=== PATIENT | male | born 1960 | race Caucasian/White ===

== ENCOUNTER 2016-12-16 07:00 | Day surgery (SDC) | payer OTHER ==
[~2016-12-16] VITALS: Ht 160 cm; Wt 61.2 kg
--- NOTE | ~2016-12-16 | OP ---
PATIENT NAME: HERNÁN CONTE MEDICAL RECORD: [id number] :62 LOCATION:[facility] ADMISSION DATE: SURGEON: YU HAIRSTON DPM DATE OF OPERATION: 12/16/2016 PREOPERATIVE DIAGNOSIS: Arthritis, right first metatarsophalangeal joint. POSTOPERATIVE DIAGNOSIS: Arthritis, right first metatarsophalangeal joint. PROCEDURE: Cheilectomy, right first metatarsophalangeal joint. ANESTHESIA: Local with IV sedation utilizing lidocaine and Marcaine plain, approximately 15 cc total around the first ray of the right foot. HEMOSTASIS: Right ankle tourniquet at 250 mmHg. PREOPERATIVE DETAILS: The patient was taken to the OR and placed on the operating table in supine position. This followed by induction of anesthesia and infiltration of local anesthetic. The right extremity was then prepped and draped in the usual aseptic technique followed by elevation of extremity and inflation of tourniquet. A 15 blade was used to create a 3.5-4 cm linear incision over dorsal aspect of the first metatarsal extending to the middle of the proximal phalanx of the hallux. The incision was deepened down through subcutaneous tissue. A linear capsulotomy was performed and the head of the first metatarsal and base of the proximal phalanx was delivered. There was noted to be significant chondromalacia and arthritic spurring on the dorsal aspect of the joint. There was also noted to be a cartilaginous deficit on the head of the first metatarsal. At this time, a rongeur was used to remove all spurring on the head of the first metatarsal and the base of proximal phalanx. A sagittal saw was then used to perform a cheilectomy on the first metatarsal head, removing the dorsal enlargement of the first metatarsal head. A rongeur and a rasp were used to smooth the areas. At this time, a 1.1 drill was used to drill the cartilaginous defects and the head of the first metatarsal, 5 holes were drilled deep in the deficit. Wound was flushed. The capsule was repaired with 2-0 Vicryl, this was followed by closure of the subcutaneous tissue with 4-0 Rapide. The skin was then closed with 4-0 Rapide in a subcuticular technique, followed by Dermabond, Adaptic, 4 x 4 and Conform were used to dress the wound followed by application of Coban. Tourniquet was deflated. POSTOPERATIVE DETAILS: The patient tolerated the procedure well and left the OR with vital signs stable and vascular status at preoperative levels. The patient was transported to recovery per anesthesia in stable condition. TRANSINT:[id number] Voice Confirmation ID: [id number] DOCUMENT ID: [id number] YU HAIRSTON DPM CC: [id number] DICTATION DATE: 12/16/1648 PROJECT CONTROL ANALYST: 12/16/16 1642 [facility] 12/16/16 [place] [id number] [place] [id number]
[~2016-12-16 07:00] MED LIST: ADDERALL 30 MG30 MG PO; AFRIN15 ML NASAL; NEURONTIN600 MG PO; SEROQUEL200 MG PO; ULTRAM50 MG PO; VALIUM10 MG PO; VOLTAREN100 GM TOPICAL
[2016-12-16 07:08] VITALS: BP 126/90; Ht 160 cm; Wt 61.2 kg
--- NOTE | 2016-12-16 11:35 | NUR ---
1130 DC INSTS GIVEN, VOICED UNDERSTANDING, DRESSED, DRESSING CDI RELEASED IN WC WITH ESCORT.
== END 2016-12-16 11:35 | disposition home or self-care (01) ==
LOC: D.OPS 07:00
DX: M13.871 Other specified arthritis, right ankle and foot (principal)